=== PATIENT | female | born 1990 | race Caucasian/White ===

== ENCOUNTER 2017-12-30 16:43 | Inpatient (IN) | payer MEDICAID ==
[~2017-12-30] VITALS: Ht 167.6 cm; Wt 103.5 kg
[2017-12-30 17:33] LABS: BASOPHILS # (AUTO) 0.03 x10^3/uL (0-0.1); BASOPHILS % (AUTO) 0 % (0-1); EOSINOPHILS # (AUTO) 0.04 x10^3/uL (0-0.4); EOSINOPHILS % (AUTO) 1 % (1-7); LYMPHOCYTES # (AUTO) 1.64 x10^3/uL (1-3.4); LYMPHOCYTES % (AUTO) 18 % (22-44); MD NO; MEAN CORPUSCULAR HEMOGLOBIN 31.9 pg (27.0-34.8); MEAN CORPUSCULAR HGB CONC 33.8 g/dL (32.4-35.8); MEAN CORPUSCULAR VOLUME 94.5 fL (80-100); MEAN PLATELET VOLUME 9.1 fL (7.4-10.4); MONOCYTES # (AUTO) 0.59 x10^3/uL (0.2-0.8); MONOCYTES % (AUTO) 6 % (2-9); NEUTROPHILS # (AUTO) 6.96 x10^3/uL (1.8-6.8); NEUTROPHILS % (AUTO) 75 % (42-75); PLATELET COUNT 176 x10^3/uL (130-400); RED BLOOD COUNT 3.99 x10^6/uL (3.82-5.3); RED CELL DISTRIBUTION WIDTH 13.1 % (9.6-15.2)
[2017-12-30 17:44] LABS: INTERNATIONAL NORMALIZED RATIO 0.97 (0.93-1.1); PROTHROMBIN TIME 10.1 Seconds (9.6-11.5)
[2017-12-30] MEDS ORDERED: DIPHENHYDRAMINE 50 MG/ML, 1ML ONE (20:25)
[2017-12-30] MEDS ORDERED: METOCLOPRAMIDE 5 MG/ML, 2ML ONE (20:25)
[2017-12-30] MEDS ORDERED: SODIUM CHLORIDE 0.9% 1,000ML IVBOLUS ONE (20:30)
[2017-12-30] MEDS ORDERED: DIPHENHYDRAMINE 50 MG/ML, 1ML IVPush ONE (20:30)
[2017-12-30] MEDS ORDERED: METOCLOPRAMIDE 5 MG/ML, 2ML IVPush ONE (20:30)
[2017-12-30] MEDS ORDERED: PREN-3 PO (20:45)
[2017-12-30] MEDS ORDERED: ONDANSETRON 2MG/ML, 2ML IVPush PRN (21:00)
[2017-12-30] MEDS ORDERED: DOCUSATE 100 MG CAPSULE PO PRN (21:00)
[2017-12-30] MEDS ORDERED: METOCLOPRAMIDE 5 MG/ML, 2ML IVPush PRN (21:00)
[2017-12-30] MEDS ORDERED: ACETAMINOPHEN 325 MG TABLET PO PRN (21:00)
[2017-12-30] MEDS ORDERED: ONDANSETRON ODT 4 MG PO PRN (21:00)
[2017-12-30] MEDS ORDERED: BISACODYL 10 MG SUPP PR PRN (21:00)
[2017-12-30] MEDS ORDERED: PROMETHAZINE 25 MG SUPP PR PRN (21:00)
[2017-12-30 21:26] LABS: HEMOGLOBIN A1C 4.5 % (4.2-6.3)
[2017-12-30 22:06] VITALS: BP 109/68
[2017-12-30] MEDS: SODIUM CHLORIDE 0.9% 1,000 ML IV SCH (22:30)
[2017-12-31 02:01] VITALS: BP 110/69
[2017-12-31 05:06] LABS: BASOPHILS # (AUTO) 0.01 x10^3/uL (0-0.1); BASOPHILS % (AUTO) 0 % (0-1); EOSINOPHILS # (AUTO) 0.06 x10^3/uL (0-0.4); EOSINOPHILS % (AUTO) 1 % (1-7); LYMPHOCYTES # (AUTO) 2.24 x10^3/uL (1-3.4); LYMPHOCYTES % (AUTO) 31 % (22-44); MD NO; MEAN CORPUSCULAR HEMOGLOBIN 32.2 pg (27.0-34.8); MEAN CORPUSCULAR HGB CONC 33.9 g/dL (32.4-35.8); MEAN CORPUSCULAR VOLUME 95.2 fL (80-100); MEAN PLATELET VOLUME 9.3 fL (7.4-10.4); MONOCYTES # (AUTO) 0.61 x10^3/uL (0.2-0.8); MONOCYTES % (AUTO) 9 % (2-9); NEUTROPHILS # (AUTO) 4.22 x10^3/uL (1.8-6.8); NEUTROPHILS % (AUTO) 59 % (42-75); PLATELET COUNT 136 x10^3/uL (130-400); RED BLOOD COUNT 3.25 x10^6/uL (3.82-5.3); RED CELL DISTRIBUTION WIDTH 13.3 % (9.6-15.2)
[2017-12-31 05:09] LABS: ALBUMIN 2.2 g/dL (3.4-5.0); ANION GAP 6 mmol/L (5-15); CALCIUM 7.5 mg/dL (8.5-10.1); CHLORIDE 113 mmol/L (98-107)
[2017-12-31 05:22] LABS: ALANINE AMINOTRANSFERASE 17 U/L (12-78); ALKALINE PHOSPHATASE 53 U/L (45-117); BILIRUBIN,TOTAL 0.2 mg/dL (0.2-1.0); CREATININE 0.56 mg/dL (0.55-1.02); TOTAL PROTEIN 5.1 g/dL (6.4-8.2)
[2017-12-31] MEDS: SODIUM CHLORIDE 0.9% 1,000 ML IV SCH ×2 (06:08→17:22)
[2017-12-31 06:50] VITALS: BP 104/69
[2017-12-31] MEDS: SENNA/DOCUSATE TABLET PO SCH (09:00)
[2017-12-31] MEDS: PRENATAL VIT/IRON/FA 1 EACH TABLET PO SCH (10:11)
[2017-12-31 10:52] LABS: MICROSCOPIC AUTO
[2017-12-31 11:03] VITALS: BP 104/68
[2017-12-31 11:04] VITALS: BP 112/74
[2017-12-31 11:06] VITALS: BP 109/72
[2017-12-31 11:45] LABS: CULTURE INDICATED? YES
[2017-12-31] MEDS: CEPHALEXIN 500 MG CAPSULE PO SCH ×2 (18:42→19:52)
[2017-12-31 19:01] VITALS: BP 127/81
[2018-01-01 00:47] VITALS: BP 109/67
[2018-01-01] MEDS: SODIUM CHLORIDE 0.9% 1,000 ML IV SCH (03:09)
[2018-01-01 05:07] LABS: BASOPHILS # (AUTO) 0.02 x10^3/uL (0-0.1); BASOPHILS % (AUTO) 0 % (0-1); EOSINOPHILS # (AUTO) 0.05 x10^3/uL (0-0.4); EOSINOPHILS % (AUTO) 1 % (1-7); LYMPHOCYTES # (AUTO) 2.23 x10^3/uL (1-3.4); LYMPHOCYTES % (AUTO) 29 % (22-44); MD NO; MEAN CORPUSCULAR HEMOGLOBIN 31.7 pg (27.0-34.8); MEAN CORPUSCULAR HGB CONC 33.3 g/dL (32.4-35.8); MEAN PLATELET VOLUME 9.2 fL (7.4-10.4); MONOCYTES % (AUTO) 6 % (2-9); NEUTROPHILS # (AUTO) 4.94 x10^3/uL (1.8-6.8); NEUTROPHILS % (AUTO) 64 % (42-75); PLATELET COUNT 131 x10^3/uL (130-400); RED BLOOD COUNT 3.14 x10^6/uL (3.82-5.3); RED CELL DISTRIBUTION WIDTH 13.5 % (9.6-15.2)
[2018-01-01 05:19] LABS: CHLORIDE 113 mmol/L (98-107)
[2018-01-01] MEDS: CEPHALEXIN 500 MG CAPSULE PO SCH ×4 (05:27→21:49)
[2018-01-01 05:34] LABS: ALBUMIN 2.1 g/dL (3.4-5.0); ANION GAP 8 mmol/L (5-15); CALCIUM 7.9 mg/dL (8.5-10.1); CREATININE 0.51 mg/dL (0.55-1.02)
[2018-01-01 07:00] VITALS: BP 105/70
[2018-01-01] MEDS: PRENATAL VIT/IRON/FA 1 EACH TABLET PO SCH (08:41)
[2018-01-01] MEDS: SENNA/DOCUSATE TABLET PO SCH (09:00)
[2018-01-01 12:20] VITALS: BP 150/88
[2018-01-01 21:36] VITALS: BP 125/77
[2018-01-02 02:59] VITALS: BP 113/69
[2018-01-02] MEDS: CEPHALEXIN 500 MG CAPSULE PO SCH ×3 (05:50→16:32)
[2018-01-02 07:32] VITALS: BP 111/70
[2018-01-02] MEDS: SENNA/DOCUSATE TABLET PO SCH (08:50)
[2018-01-02] MEDS: PRENATAL VIT/IRON/FA 1 EACH TABLET PO SCH (08:51)
[2018-01-02 12:45] VITALS: BP 103/65
[2018-01-02] MEDS ORDERED: FERR325T5 PO (14:22)
[2018-01-02] MEDS ORDERED: CEPH-376 PO (14:22)
[2018-01-02] MEDS ORDERED: PREN1TAB14 PO (14:22)
== END 2018-01-02 17:45 | disposition home or self-care (01) | DRG 781 ==
LOC: ED 17:19 → EDIP 20:12 → 4EST 20:57
PROVIDERS: ADMIT Internal Medicine; ATTEND Internal Medicine
DX: O99.013 Anemia complicating pregnancy, third trimester (principal); G81.94 Hemiplegia, unspecified affecting left nondominant side; O26.833 Pregnancy related renal disease, third trimester; O99.283 Endocrine, nutritional and metabolic diseases complicating pregnancy, third trimester; O99.353 Diseases of the nervous system complicating pregnancy, third trimester; O99.843 Bariatric surgery status complicating pregnancy, third trimester; O75.89 Other specified complications of labor and delivery; D64.9 Anemia, unspecified; E53.8 Deficiency of other specified B group vitamins; G43.109 Migraine with aura, not intractable, without status migrainosus; R29.810 Facial weakness; O26.893 Other specified pregnancy related conditions, third trimester; N28.89 Other specified disorders of kidney and ureter; N15.9 Renal tubulo-interstitial disease, unspecified; Z3A.28 28 weeks gestation of pregnancy; Z82.49 Family history of ischemic heart disease and other diseases of the circulatory system; Z80.9 Family history of malignant neoplasm, unspecified; Z90.49 Acquired absence of other specified parts of digestive tract
CPT/HCPCS: 36415; 70450; 70544; 70551; 76770; 80047; 80053; 80069; 81001; 82607; 82728; 82962; 83036; 83540; 83550; 83735; 84100; 84443; 85014; 85018; 85025; 85610; 85730; 87086; 93005; 93306; 93880; 96374; 96375; J1200; J2765; J7030